=== PATIENT | male | born 1995 ===

== ENCOUNTER 2017-07-30 12:36 | Emergency (ER) | payer OTHER ==
[2017-07-30 13:03] VITALS: RESP 18; TEMP 97.1
[2017-07-30] MEDS ORDERED: IBUPROFEN 400 MG TAB PO STA (13:22)
[2017-07-30] MEDS ORDERED: SUMAtriptan SUCCINATE 6 MG/0.5 ML VIAL SQ STA (13:22)
[2017-07-30] MEDS ORDERED: METOCLOPRAMIDE 10 MG TAB PO STA (13:22)
--- NOTE | 2017-07-30 13:25 | ED ---
Headache HPI - General Chief Complaint: Headache Stated Complaint: headache, nausea Time Seen by Provider: 07/30/17 13:05 Mode of arrival: ambulatory Limitations: no limitations - History of Present Illness Initial Comments: This patient is a 21-year-old man who presents to be evaluated for headache. The patient states that 3-4 hours ago he noted the onset of what seemed to be some vision changes on the left side, including a feeling of shimmering lights and then appearing that the lights were brighter than usual. He states that after about 15 minutes that seemed to resolve and he noticed left-sided headache , and the frontal, temporal and retro-orbital areas on the left. Patient states it's an aching, moderate, without any worsening or relieving factors. He tried taking some Tylenol without having much relief. No other associated symptoms. Patient denies previous history of these headaches. MD Complaint: headache Onset/Timin -: hour(s) Onset Description: gradual Location: left, frontal, temporal, retro-orbital Severity: moderate Quality: aching Consistency: constant Improves With: nothing Worsens With: none Context: occurred at rest Associated Symptoms: nausea, vomiting, other (Patient describes having some visual symptoms including some flashing lights and feeling like the lights were too bright about 10 minutes before the headache came on) Treatments Prior to Arrival: Acetaminophen - Related Data Previous Rx's Medication Instructions Recorded Amoxicillin 875 mg PO Q12HR #14 tablet 07/30/17 Pseudoephedrine 12Hr [Sudafed 12 120 mg PO Q12H #14 tablet.er 07/30/17 Hour] Allergies Allergy/AdvReac Type Severity Reaction Status Date / Time No Known Allergies Allergy Verified 07/30/17 13:03 Review of Systems ROS Statement: Those systems with pertinent positive or pertinent negative responses have been documented in the HPI. ROS Other: All systems not noted in ROS Statement are negative. Constitutional: Denies: fever, chills Eyes: Reports: eye pain. Denies: eye discharge, vision change ENT: Denies: ear pain, hearing loss, epistaxis, congestion Respiratory: Denies: cough Cardiovascular: Denies: palpitations, syncope Gastrointestinal: Reports: nausea, vomiting. Denies: abdominal pain, diarrhea Musculoskeletal: Denies: back pain Skin: Denies: rash Neurological: Reports: as per HPI, headache. Denies: weakness, numbness, paresthesias, confusion, vertigo Past Medical History Past Medical History: No Reported History History of Any Multi-Drug Resistant Organisms: None Reported Past Surgical History: No Surgical Hx Reported Past Psychological History: No Psychological Hx Reported Smoking Status: Never smoker Past Alcohol Use History: None Reported Past Drug Use History: None Reported General Exam Limitations: no limitations General appearance: alert, in no apparent distress Head exam: Present: atraumatic, normocephalic Eye exam: Present: normal appearance, PERRL, EOMI. Absent: scleral icterus, conjunctival injection, nystagmus, periorbital swelling, periorbital tenderness ENT exam: Present: normal oropharynx, mucous membranes moist, TM's normal bilaterally, normal external ear exam Neck exam: Present: normal inspection, full ROM. Absent: meningismus Neurological exam: Present: alert, oriented X3, CN II-XII intact, normal gait. Absent: motor sensory deficit Skin exam: Present: warm, dry, intact, normal color. Absent: rash Course Vital Signs 07/30/17 07/30/17 13:01 16:19 Temperature 97.1 F L 97.1 F L Pulse Rate 53 L 60 Respiratory 18 18 Rate Blood Pressure 112/59 110/62 O2 Sat by Pulse 99 100 Oximetry Medical Decision Making - Medical Decision Making Patient is a 21-year-old man with headache, found to have sinusitis. Will treat and have close follow-up. Disposition Clinical Impression: Headache, Sinusitis Disposition: HOME SELF-CARE Condition: Good Instructions: Sinusitis (ED), Acute Headache (ED) Prescriptions: Amoxicillin 875 mg PO Q12HR #14 tablet Pseudoephedrine 12Hr [Sudafed 12 Hour] 120 mg PO Q12H #14 tablet.er Is patient prescribed a controlled substance at d/c from ED?: No Referrals: None,Stated [Primary Care Provider] - 1-2 days
--- NOTE | 2017-07-30 15:48 | CT ---
EXAMINATION TYPE: CT brain wo con DATE OF EXAM: 07/30/2017 COMPARISON: NONE HISTORY: Headache and Nausea CT DLP: 999.8 mGycm. Automated Exposure Control for Dose Reduction was Utilized. TECHNIQUE: CT scan of the head is performed without contrast. FINDINGS: There is no acute intracranial hemorrhage, mass effect, or midline shift identified. The ventricles and sulci are within normal limits in size. There is opacification left maxillary sinus. IMPRESSION: No acute intracranial hemorrhage, mass effect, or midline shift is seen. Extensive opaci fication left maxillary sinus is identified. No intracranial abnormality is identified.
[2017-07-30] MEDS ORDERED: AMOXICILLIN 875 MG TAB PO STA (15:56)
[2017-07-30 16:20] VITALS: BP 110/62; PULSE 60
== END 2017-07-30 16:20 | disposition home or self-care (01) ==
LOC: EDBD → EC 12:36
DX: J32.9 Chronic sinusitis, unspecified (principal); R11.2 Nausea with vomiting, unspecified
CPT/HCPCS: 70450; 99284; 96372; J3030

== ENCOUNTER 2017-11-24 07:50 | Emergency (ER) | payer OTHER ==
[2017-11-24 07:57] VITALS: BP 109/70; PULSE 63; RESP 18; TEMP 97.7
[2017-11-24] MEDS ORDERED: ONDANSETRON 4 MG ODT STARTER PACK 2 TAB BTL PO STA (08:19)
--- NOTE | 2017-11-24 08:24 | ED ---
Nausea/Vomiting/Diarrhea HPI - General Chief complaint: Nausea/Vomiting/Diarrhea Stated complaint: Vomiting/headache Time Seen by Provider: 11/24/17 08:13 Source: patient, RN notes reviewed, old records reviewed Mode of arrival: ambulatory Limitations: no limitations - History of Present Illness Initial comments: This patient's a 22-year-old male presents emergency Department chief complaint of waking up with nausea 2 episodes of vomiting and mild headache. Patient reports that he is here for a work note. He works at the [employer]. He states that other people sick at work. Patient states that he's had no fevers or chills. He denies any abdominal pain or tenderness. He denies any diarrhea or urinary symptoms. Denies any significant past medical history her surgical history. - Related Data Home Medications Medication Instructions Recorded Confirmed Multivitamin [Men's Multi-Vitamin] 1 tab PO DAILY 11/24/17 11/24/17 Previous Rx's Medication Instructions Recorded Ondansetron Odt [Zofran Odt] 4 mg PO Q8HR PRN #12 tab 11/24/17 Allergies Allergy/AdvReac Type Severity Reaction Status Date / Time No Known Allergies Allergy Verified 11/24/17 08:16 Review of Systems ROS Statement: Those systems with pertinent positive or pertinent negative responses have been documented in the HPI. ROS Other: All systems not noted in ROS Statement are negative. Past Medical History Past Medical History: No Reported History History of Any Multi-Drug Resistant Organisms: None Reported Past Surgical History: No Surgical Hx Reported Additional Past Surgical History / Comment(s): wisdom tooth extraction Past Psychological History: No Psychological Hx Reported Smoking Status: Never smoker Past Alcohol Use History: None Reported Past Drug Use History: None Reported General Exam - General Exam Comments Initial Comments: This is a 22-year-old male. Alert and oriented. No significant distress. General: Well appearing, well nourished, in no distress. Oriented x 3, normal mood and affect . Ambulating without difficulty. Skin: Good turgor, no rash, unusual bruising or prominent lesions Hair: Normal texture and distribution. HEENT: Head: Normocephalic, atraumatic, no visible or palpable masses, depressions, or scaring. Mouth: Mucous membranes moist, no mucosal lesions. Pharynx: Mucosa non-inflamed, no tonsillar hypertrophy or exudate Neck: Supple, without lesions, bruits, or adenopathy, thyroid non-enlarged and non-tender Heart: No cardiomegaly or thrills; regular rate and rhythm, no murmur or gallop Lungs: Clear to auscultation and percussion Abdomen: Bowel sounds normal, no tenderness, organomegaly, masses, or hernia Back: Spine normal without deformity or tenderness, no CVA tenderness Extremities: No amputations or deformities, cyanosis, edema or varicosities, peripheral pulses intact Musculoskeletal: Normal gait and station. No misalignment, asymmetry, crepitation, defects, tenderness, masses, effusions, decreased range of motion, instability, atrophy or abnormal strength or tone in the head, neck, spine, ribs , pelvis or extremities. Neurologic: CN 2-12 normal. Sensation to pain, touch, and proprioception normal. DTRs normal in upper and lower extremities. No pathologic reflexes. Psychiatric: Oriented X3, intact recent and remote memory, judgment and insight , normal mood and affect. Limitations: no limitations Course Vital Signs 11/24/17 07:55 Temperature 97.7 F Pulse Rate 63 Respiratory 18 Rate Blood Pressure 109/70 O2 Sat by Pulse 98 Oximetry Medical Decision Making - Medical Decision Making 22-year-old male presents for his primary today with chief complaint of nausea vomiting for a few hours this morning. Patient states that he thinks they got this while he was at work. Other people sick with similar complaints. Is no abdominal tenderness. Vital signs are stable. At this time Patient was discharged with Zofran for nausea and vomiting. Most likely viral gastroenteritis. Discussed close follow-up with primary care physician of symptoms continue to persist. Patient agrees treatment plan will comply. Return parameters were discussed. Disposition Clinical Impression: Nausea & vomiting Disposition: HOME SELF-CARE Condition: Good Instructions: Acute Nausea and Vomiting (ED) Additional Instructions: Patient advised to follow-up with primary care physician. Take Zofran every 8 hours as needed. Return to emergency department if any alarming signs or symptoms occur. Prescriptions: Ondansetron Odt [Zofran Odt] 4 mg PO Q8HR PRN #12 tab PRN Reason: Nausea Is patient prescribed a controlled substance at d/c from ED?: No Referrals: Antony Roth DO [Primary Care Provider] - 1-2 days Time of Disposition: 08:21
== END 2017-11-24 08:28 | disposition home or self-care (01) ==
LOC: SUPCPDRO 07:50 → EC 07:50
DX: R11.2 Nausea with vomiting, unspecified (principal); R51 Headache
CPT/HCPCS: 99284; S0119

== ENCOUNTER 2018-04-15 11:39 | Emergency (ER) | payer OTHER ==
[2018-04-15 11:49] VITALS: BP 127/74; PULSE 75; RESP 18; TEMP 97.7
[2018-04-15] MEDS ORDERED: SODIUM CHLORIDE 0.9% 2,000 ML IV STA (12:01)
[2018-04-15] MEDS ORDERED: ONDANSETRON 4 MG/2 ML VIAL IVP STA (12:01)
--- NOTE | 2018-04-15 12:18 | ED ---
Nausea/Vomiting/Diarrhea HPI - General Chief complaint: Nausea/Vomiting/Diarrhea Stated complaint: VOMITING, ABDOMINAL PAIN Time Seen by Provider: 04/15/18 11:50 Source: patient, RN notes reviewed Mode of arrival: ambulatory Limitations: no limitations - History of Present Illness Initial comments: 22-year-old male presents emergency Department chief complaint of nausea vomiting diarrhea. Patient states symptoms started last night. Patient states that he still has symptoms this morning. Patient denies any fever or chills he did have contacts with similar symptoms. Patient reports no abdominal surgeries. Patient denies any headache, dizziness, chest pain or shortness of breath. No dysuria no hematuria. Denies any melena or hematochezia. - Related Data Home Medications Medication Instructions Recorded Confirmed Multivitamin [Men's Multi-Vitamin] 1 tab PO DAILY 11/24/17 04/15/18 [place]-3 Fatty Acids/Fish Oil [Fish 1 cap PO DAILY 04/15/18 04/15/18 Oil 1,000 mg Softgel] Previous Rx's Medication Instructions Recorded Ondansetron Odt [Zofran Odt] 4 mg PO Q8HR PRN #10 tab 04/15/18 Allergies Allergy/AdvReac Type Severity Reaction Status Date / Time No Known Allergies Allergy Verified 04/15/18 12:29 Review of Systems ROS Statement: Those systems with pertinent positive or pertinent negative responses have been documented in the HPI. ROS Other: All systems not noted in ROS Statement are negative. Past Medical History Past Medical History: No Reported History History of Any Multi-Drug Resistant Organisms: None Reported Past Surgical History: No Surgical Hx Reported Additional Past Surgical History / Comment(s): wisdom tooth extraction Past Psychological History: No Psychological Hx Reported Smoking Status: Never smoker Past Alcohol Use History: None Reported Past Drug Use History: None Reported General Exam Limitations: no limitations General appearance: alert, in no apparent distress Head exam: Present: atraumatic, normocephalic, normal inspection Eye exam: Present: normal appearance, PERRL, EOMI. Absent: scleral icterus, conjunctival injection, periorbital swelling ENT exam: Present: normal exam, normal oropharynx, mucous membranes moist Neck exam: Present: normal inspection, full ROM. Absent: tenderness, meningismus, lymphadenopathy Respiratory exam: Present: normal lung sounds bilaterally. Absent: respiratory distress, wheezes, rales, rhonchi, stridor Cardiovascular Exam: Present: regular rate, normal rhythm, normal heart sounds. Absent: systolic murmur, diastolic murmur, rubs, gallop, clicks GI/Abdominal exam: Present: soft, tenderness (Minimal diffuse), normal bowel sounds. Absent: distended, guarding, rebound, rigid Back exam: Absent: CVA tenderness (R), CVA tenderness (L) Skin exam: Present: warm, dry, intact, normal color. Absent: rash Course Vital Signs 04/15/18 11:48 Temperature 97.7 F Pulse Rate 75 Respiratory 18 Rate Blood Pressure 127/74 O2 Sat by Pulse 100 Oximetry Medical Decision Making - Medical Decision Making 22-year-old male presents emergency department for nausea vomiting diarrhea. Patient was hydrated, given antiemetics and had lab work. Patient feels improved after IV fluids and antiemetics. Patient has viral gastroenteritis. Patient will be discharged with Zofran return parameters discussed. - Lab Data Result diagrams: 04/15/18 12:11 04/15/18 12:11 Lab Results 04/15/18 04/15/18 04/15/18 Range/Units 12:11 12:11 12:14 WBC 5.8 (4.0-11.0) k/uL RBC 5.17 (4.30-5.90) m/uL Hgb 15.4 (13.0-17.5) gm/dL Hct 46.0 (39.0-53.0) % MCV 88.9 (80.0-100.0) fL MCH 29.8 (25.0-35.0) pg MCHC 33.5 (31.0-37.0) g/dL RDW 15.8 H (11.5-15.5) % Plt Count 254 (150-450) k/uL Neutrophils % 51 % Lymphocytes % 40 % Monocytes % 6 % Eosinophils % 2 % Basophils % 0 % Neutrophils # 3.0 (1.3-7.7) k/uL Lymphocytes # 2.3 (1.0-4.8) k/uL Monocytes # 0.3 (0-1.0) k/uL Eosinophils # 0.1 (0-0.7) k/uL Basophils # 0.0 (0-0.2) k/uL Sodium 145 (137-145) mmol/L Potassium 3.9 (3.5-5.1) mmol/L Chloride 109 H (98-107) mmol/L Carbon Dioxide 26 (22-30) mmol/L Anion Gap 10 mmol/L BUN 16 (9-20) mg/dL Creatinine 1.02 (0.66-1.25) mg/dL Est GFR (CKD-EPI)AfAm >90 (>60 ml/min/1.73 sqM) Est GFR (CKD-EPI)NonAf >90 (>60 ml/min/1.73 sqM) Glucose 109 H (74-99) mg/dL Calcium 9.4 (8.4-10.2) mg/dL Total Bilirubin 0.2 (0.2-1.3) mg/dL AST 32 (17-59) U/L ALT 31 (21-72) U/L Alkaline Phosphatase 69 (38-126) U/L Total Protein 6.9 (6.3-8.2) g/dL Albumin 4.3 (3.5-5.0) g/dL Lipase 131 (23-300) U/L Urine Color Yellow Urine Appearance Cloudy (Clear) Urine pH 6.0 (5.0-8.0) Ur Specific [place] 1.024 (1.001-1.035) Urine Protein Trace H (Negative) Urine Glucose (UA) Negative (Negative) Urine Ketones Trace H (Negative) Urine Blood Negative (Negative) Urine Nitrite Negative (Negative) Urine Bilirubin Negative (Negative) Urine Urobilinogen <2.0 (<2.0) mg/dL Ur Leukocyte Esterase Negative (Negative) Urine WBC 3 (0-5) /hpf Ur Squamous Epith Cells <1 (0-4) /hpf Urine Mucus Many H (None) /hpf Disposition Clinical Impression: Gastroenteritis Disposition: HOME SELF-CARE Condition: Stable Instructions: Gastroenteritis (ED) Additional Instructions: Please return to the Emergency Department if symptoms worsen or any other concerns. Prescriptions: Ondansetron Odt [Zofran Odt] 4 mg PO Q8HR PRN #10 tab PRN Reason: Nausea Is patient prescribed a controlled substance at d/c from ED?: No Referrals: Antony Roth DO [Primary Care Provider] - 1-2 days Time of Disposition: 13:08
[2018-04-15 12:24] LABS: Basophils % (A) 0 %; Eosinophils # (A) 0.1 k/uL (0-0.7); Eosinophils % (A) 2 %; HGB 15.4 gm/dL (13.0-17.5); Lymphocytes # (A) 2.3 k/uL (1.0-4.8); Lymphocytes % (A) 40 %; MCH 29.8 pg (25.0-35.0); MCHC 33.5 g/dL (31.0-37.0); MCV 88.9 fL (80.0-100.0); Mean Platelet Volume 8.2; Monocytes # (A) 0.3 k/uL (0-1.0); Monocytes % (A) 6 %; Neutrophils % (A) 51 %; Platelet Count 254 k/uL (150-450); RBC 5.17 m/uL (4.30-5.90); RDW 15.8 % (11.5-15.5); WBC 5.8 k/uL (4.0-11.0)
[2018-04-15 12:30] LABS: Appearance,Urine Cloudy (Clear); Bilirubin,Urine Negative (Negative); Blood,Urine Negative (Negative); Color,Urine Yellow; Glucose,Urine (UA) Negative (Negative); Ketones,Urine Trace (Negative); Leukocyte Esterase,Urine Negative (Negative); Mucus,Urine Many /hpf; Nitrite,Urine Negative (Negative); Protein,Urine Trace (Negative); Specific Gravity,Urine 1.024 (1.001-1.035); Squamous Epithelial Cell,Urine <1 /hpf (0-4); Urobilinogen,Urine <2.0 mg/dL (<2.0); WBC,Urine 3 /hpf (0-5)
[2018-04-15 12:32] LABS: ALT 31 U/L (21-72); AST 32 U/L (17-59); Albumin 4.3 g/dL (3.5-5.0); Alkaline Phosphatase 69 U/L (38-126); Anion Gap 10 mmol/L; Blood Urea Nitrogen 16 mg/dL (9-20); Calcium 9.4 mg/dL (8.4-10.2); Carbon Dioxide 26 mmol/L (22-30); Chloride 109 mmol/L (98-107); Glucose 109 mg/dL (74-99); Lipase 131 U/L (23-300); Potassium 3.9 mmol/L (3.5-5.1); Sodium 145 mmol/L (137-145); Total Bilirubin 0.2 mg/dL (0.2-1.3); Total Protein 6.9 g/dL (6.3-8.2)
== END 2018-04-15 14:12 | disposition home or self-care (01) ==
LOC: EC 11:39
DX: A08.4 Viral intestinal infection, unspecified (principal)
CPT/HCPCS: 36415; 80053; 83690; 85025; 81001; 99284; 96374; 96361 ×2; J2405

== ENCOUNTER 2018-09-10 08:27 | Emergency (ER) | payer OTHER ==
[2018-09-10 08:33] VITALS: BP 128/68; PULSE 62; RESP 18; TEMP 97.7
--- NOTE | 2018-09-10 09:17 | XR ---
EXAMINATION TYPE: XR chest 2V DATE OF EXAM: 09/10/2018 COMPARISON: None HISTORY: 22-year-old male with pain after fall TECHNIQUE: PA and lateral views FINDINGS: The cardiomediastinal silhouette, aorta, and pulmonary vasculature are within normal limits. Lungs an d pleural spaces are clear. IMPRESSION: No acute cardiopulmonary process.
--- NOTE | 2018-09-10 09:19 | XR ---
EXAMINATION TYPE: XR shoulder complete LT DATE OF EXAM: 09/10/2018 COMPARISON: NONE HISTORY: 22-year-old male with pain after fall TECHNIQUE: 3 views FINDINGS: No acute fracture, subluxation, or dislocation is identified. Subacromial space is preserved. IMPRESSION: No acute osseous abnormality seen. If pain persists and if clinically warranted, MRI can be considere d.
--- NOTE | 2018-09-10 09:19 | XR ---
EXAMINATION TYPE: XR lumbar spine 2 or 3V DATE OF EXAM: 09/10/2018 CLINICAL HISTORY: Back pain after fall TECHNIQUE: Frontal and lateral images of the lumbar spine are obtained. COMPARISON: None FINDINGS: There are 5 lumbar type vertebral bodies identified with nonunion of the posterior element s/spina bifida of S1. The lumbar spine shows satisfactory alignment without evidence of acute fractu re or dislocation. Vertebral body heights and disk space heights are within normal limits. The overly ing soft tissue appears unremarkable. IMPRESSION: No acute fracture or malalignment is seen in the lumbar spine.
--- NOTE | 2018-09-10 09:43 | ED ---
Fall HPI - General Chief Complaint: Fall Stated Complaint: back/shoulder pain Time Seen by Provider: 09/10/18 08:35 Source: patient, RN notes reviewed Mode of arrival: ambulatory Limitations: no limitations - History of Present Illness Initial Comments: 22-year-old male presents emergency Department chief complaint of fall. Patient states she was carrying an air conditioner unit down the stairs states that she tripped on the cord and fell down a few steps. Denies any head injury no loss conscious. Patient complains of pain along her sternum, left shoulder, low back. Patient denies any neck pain, lower extremity injury. Patient states his happened on Monday states that he still very sore from injury. Denies any abrasions or lacerations. - Related Data Home Medications Medication Instructions Recorded Confirmed No Known Home Medications 09/10/18 09/10/18 Allergies Allergy/AdvReac Type Severity Reaction Status Date / Time No Known Allergies Allergy Verified 09/10/18 09:23 Review of Systems ROS Statement: Those systems with pertinent positive or pertinent negative responses have been documented in the HPI. ROS Other: All systems not noted in ROS Statement are negative. Past Medical History Past Medical History: No Reported History History of Any Multi-Drug Resistant Organisms: None Reported Past Surgical History: No Surgical Hx Reported Additional Past Surgical History / Comment(s): wisdom tooth extraction Past Psychological History: No Psychological Hx Reported Smoking Status: Never smoker Past Alcohol Use History: None Reported Past Drug Use History: None Reported General Exam General appearance: alert, in no apparent distress Head exam: Present: atraumatic, normocephalic, normal inspection Eye exam: Present: normal appearance, PERRL, EOMI. Absent: scleral icterus, conjunctival injection, periorbital swelling ENT exam: Present: normal exam, normal oropharynx, mucous membranes moist, TM's normal bilaterally Neck exam: Present: normal inspection, full ROM. Absent: tenderness, meningismus, lymphadenopathy Respiratory exam: Present: normal lung sounds bilaterally, chest wall tenderness (Mild anterior chest wall, sternal). Absent: respiratory distress, wheezes, rales, rhonchi, stridor Cardiovascular Exam: Present: regular rate, normal rhythm, normal heart sounds. Absent: systolic murmur, diastolic murmur, rubs, gallop, clicks GI/Abdominal exam: Present: soft, normal bowel sounds. Absent: distended, tenderness, guarding, rebound, rigid Extremities exam: Present: other (Left shoulder full range of motion mild discomfort with full extension, no laxity mild tenderness over the AC joint) Back exam: Present: full ROM, tenderness (Mild lower lumbar), paraspinal tenderness. Absent: vertebral tenderness Neurological exam: Present: alert, oriented X3, CN II-XII intact Skin exam: Present: warm, dry, intact, normal color. Absent: rash Course Vital Signs 09/10/18 08:30 Temperature 97.7 F Pulse Rate 62 Respiratory 18 Rate Blood Pressure 128/68 O2 Sat by Pulse 97 Oximetry Medical Decision Making - Medical Decision Making 22-year-old male presented for fall, shoulder, chest and back injury x-rays obt ained no acute abnormality. Patient left shoulder sprain, chest wall contusion and lumbar strain. Patient will follow-up with orthopedics if no improvement return parameters were discussed. Disposition Clinical Impression: Fall, Sprain of left shoulder, Chest wall contusion, Lumbar strain Disposition: HOME SELF-CARE Condition: Stable Instructions (If sedation given, give patient instructions): Shoulder Sprain (ED), Acute Low Back Pain (ED) Additional Instructions: Please return to the Emergency Department if symptoms worsen or any other concerns. Is patient prescribed a controlled substance at d/c from ED?: No Referrals: Antony Roth DO [Primary Care Provider] - 1-2 days Gilson Ambrose DO [Doctor of Osteopathic Medicine] - 1-2 days Time of Disposition: 09:42
== END 2018-09-10 09:58 | disposition home or self-care (01) ==
LOC: EC 08:27
DX: S43.402A Unspecified sprain of left shoulder joint, initial encounter (principal); S20.219A Contusion of unspecified front wall of thorax, initial encounter; S39.012A Strain of muscle, fascia and tendon of lower back, initial encounter; W10.9XXA Fall (on) (from) unspecified stairs and steps, initial encounter
CPT/HCPCS: 71046; 72100; 99283

== ENCOUNTER 2019-01-24 09:01 | Emergency (ER) | payer OTHER ==
[2019-01-24 09:05] VITALS: BP 118/65; PULSE 79; RESP 20; TEMP 97.3
[2019-01-24] MEDS ORDERED: diphenhydrAMINE 50 MG CAP PO STA (09:36)
--- NOTE | 2019-01-24 09:40 | ED ---
General Adult HPI - General Chief complaint: Skin/Abscess/Foreign Body Stated complaint: Rash Time Seen by Provider: 01/24/19 09:18 Source: patient, RN notes reviewed Mode of arrival: ambulatory Limitations: no limitations - History of Present Illness Initial comments: 23-year-old male without any significant past medical history presents to the emergency department for a chief complaint of rash. Patient thinks he may have hives. States he had these 2 days ago but they went away. States that when he woke up today again had a rash on his arms and legs. States it is pruritic in nature. Denies any fevers or chills. Denies changing detergents. Denies any swelling of his lips tongue or throat. Patient has no other complaints at this time including shortness of breath, chest pain, abdominal pain, nausea or vomiting, headache, or visual changes. - Related Data Home Medications Medication Instructions Recorded Confirmed Cetirizine HCl [Zyrtec] 10 mg PO ONCE PRN 01/24/19 01/24/19 Multivitamins, Thera [Multivitamin 1 tab PO DAILY 01/24/19 01/24/19 (formulary)] [place]-3 Fatty Acids/Fish Oil [Fish 1 cap PO DAILY 01/24/19 01/24/19 Oil 1,000 mg Softgel] Allergies Allergy/AdvReac Type Severity Reaction Status Date / Time No Known Allergies Allergy Verified 01/24/19 09:12 Review of Systems ROS Statement: Those systems with pertinent positive or pertinent negative responses have been documented in the HPI. ROS Other: All systems not noted in ROS Statement are negative. Past Medical History Past Medical History: No Reported History History of Any Multi-Drug Resistant Organisms: None Reported Past Surgical History: No Surgical Hx Reported Additional Past Surgical History / Comment(s): wisdom tooth extraction Past Psychological History: No Psychological Hx Reported Smoking Status: Never smoker Past Alcohol Use History: None Reported Past Drug Use History: None Reported General Exam Limitations: no limitations General appearance: alert, in no apparent distress Head exam: Present: atraumatic, normocephalic, normal inspection Eye exam: Present: normal appearance, PERRL, EOMI. Absent: scleral icterus, conjunctival injection, periorbital swelling, periorbital tenderness, other ENT exam: Present: normal exam, normal oropharynx (No angioedema, no swelling of the lips tongue or throat.), mucous membranes moist, TM's normal bilaterally, normal external ear exam Neck exam: Present: normal inspection, full ROM. Absent: tenderness, meningismus, lymphadenopathy Respiratory exam: Present: normal lung sounds bilaterally. Absent: respiratory distress, wheezes, rales, rhonchi, stridor Cardiovascular Exam: Present: regular rate, normal rhythm, normal heart sounds. Absent: systolic murmur, diastolic murmur, rubs, gallop, clicks GI/Abdominal exam: Present: soft, normal bowel sounds. Absent: distended, tenderness, guarding, rebound, rigid Skin exam: Present: urticaria (Patient has urticaria noted on the bilateral lower arms as well as the bilateral upper legs. No superficial infection.) Course Vital Signs 01/24/19 09:03 Temperature 97.3 F L Pulse Rate 79 Respiratory 20 Rate Blood Pressure 118/65 O2 Sat by Pulse 99 Oximetry Medical Decision Making - Medical Decision Making Patient presents with urticaria of the arms and legs. Patient did take a Zyrtec but no Benadryl. Patient was given Benadryl here in the emergency department. There is no evidence for angioedema shortness of breath or chest pain. Patient will be discharged home and will continue to take Benadryl every 4-6 hours as needed. He will follow up with his primary care provider in one to 2 days. He will return here if he has any worsening symptoms. Disposition Clinical Impression: Urticaria Disposition: HOME SELF-CARE Condition: Good Instructions (If sedation given, give patient instructions): Urticaria (ED) Additional Instructions: Please take Benadryl as needed every 4-6 hours. Please take cool baths and showers to prevent worsening of the hives. Please follow-up with primary care provider in 1-2 days. If you have worsening symptoms such as worsening rash or swelling of the lips tongue or throat return to the emergency department. Is patient prescribed a controlled substance at d/c from ED?: No Referrals: Antony Roth DO [Primary Care Provider] - 1-2 days Time of Disposition: 09:39
== END 2019-01-24 09:45 | disposition home or self-care (01) ==
LOC: EC 09:01
DX: L50.9 Urticaria, unspecified (principal)
CPT/HCPCS: 99282